=== PATIENT | male | born 1935 | race Caucasian/White ===

== ENCOUNTER 2020-02-23 11:52 | Outpatient (CLI) | payer MEDICARE, BC ==
--- NOTE | 2020-02-23 13:49 | PET ---
EXAM: PET/CT HISTORY: History of large B-cell lymphoma and prostate cancer TECHNIQUE: PET scanning with CT attenuation correction was performed from the vertex of the skull to the proxima l thighs following the intravenous administration of 10.1 millicuries [id number]. COMPARISON: CT of the chest, abdomen and pelvis dated July 13, [address] of the neck dated 07/01 FINDINGS: Biodistribution:The biodistribution for the exam appears acceptable. Head and neck: There is appropriate background activity within the brain. There is a 5.8 mm right lev el IIa lymph node that demonstrates mild hypermetabolic activity with peak activity of 3.01 and a mean activity of 2.79. No additional hypermetabolic lymphadenopathy or mass is identified. Thorax: No hypermetabolic mediastinal, hilar or axillary lymphadenopathy is evident. There are calcif ied lymph nodes within the left hilar region. No hypermetabolic pleural effusion is evident. No suspicious pulmonary nodules are identified. Abdomen and pelvis: There is expected background activity within the GI and systems.There is a mil dly hypermetabolic 1.5 cm right inguinal lymph node with a peak SUV activity of 2.79 and a mean activity 2.47. There is additionally intervally enlarged 7 mm node in the right inguinal region that demonstrates no hypermetabolic uptake. There are surgical clips within both inguinal regions. There is a stable infrarenal abdominal aortic aneurysm measuring 3.7 cm. There is prominent right renal cys t. There is a fat-containing umbilicus hernia. Osseous structures and skin: No hypermetabolic skin or osseous lesion is identified. IMPRESSION: Abnormal PET/CT 1. Nonpathologically enlarged but hypermetabolic right level IIa lymph node is suspicious for lymphom atous involvement. Certainly a mildly reactive lymph node could have a similar appearance. Continued clinical and imaging follow-up is recommended. 2. Enlarged (1.5 cm) and mildly hypermetabolic right inguinal lymph node is suspicious for lymphomato us involvement. An additional intervally enlarged 7 mm non hypermetabolic lymph node is seen adjacent to this larger 1.5 cm lymph node. 3. No hypermetabolic lymphadenopathy seen within the thorax or abdomen. 4. Stable infrarenal abdominal aortic aneurysm measuring 3.7 cm. Stable right renal cyst and a fat-co ntaining umbilical hernia.
== END 2020-02-23 11:53 | disposition home or self-care (01) ==
LOC: PET 11:52
PROVIDERS: ATTEND Internal Medicine Hematology & Oncology
DX: C83.38 Diffuse large B-cell lymphoma, lymph nodes of multiple sites (principal); I71.4 Abdominal aortic aneurysm, without rupture; N28.1 Cyst of kidney, acquired; K42.9 Umbilical hernia without obstruction or gangrene; R59.0 Localized enlarged lymph nodes
CPT/HCPCS: 78815; A9552

== ENCOUNTER 2020-04-01 08:21 | Day surgery (SDC) | payer MEDICARE, BC ==
[2020-03-30 13:57] VITALS: BMI 26.4
[2020-04-01] MEDS ORDERED: PROPOFOL 200 MG/20 ML VIAL ONE (09:10)
[2020-04-01] MEDS ORDERED: Protamine Sulfate 50 MG/5 ML VIAL ONE (10:57)
[2020-04-01] MEDS ORDERED: Heparin 5,000 UNITS/ML VIAL ONE (10:57)
[2020-04-01] MEDS ORDERED: Midazolam HCl 2 mg/2 ml Vial ONE (10:58)
[2020-04-01] MEDS ORDERED: Fentanyl 100 MCG/2 ML VIAL ONE (10:58)
--- NOTE | 2020-04-01 18:33 | OP ---
DATE OF PROCEDURE: 04/01/2020 PREOPERATIVE DIAGNOSIS: Lymphoma. PROCEDURE PERFORMED: Right internal jugular vein MediPort. ANESTHESIA: Sedation with local. DESCRIPTION OF PROCEDURE: After prepping and draping, 1% lidocaine was used to infiltrate an area in the anterior right pectoral area as well as between the heads of the sternocleidomastoid muscle. Ultrasound-guided puncture of the jugular vein was carried out, following which a wire was placed. Chest port site incision was then opened and a pocket created. Tunneler was then used to connect the two incisions. The catheter brought through the tunnel. Peel-away dilator sheath advanced into the neck under fluoroscopic control and then the catheter placed through the peel-away sheath, which was removed. Adjustments were made for length, following which it was connected to the port, placed in the pocket, flushed, and the pockets were closed. The patient tolerated the procedure. Job ID: [id number]
--- NOTE | 2020-04-05 14:11 | EKG ---
Test Reason : PREOP Blood Pressure : / mmHG Vent. Rate : 069 BPM Atrial Rate : 069 BPM P-R Int : 224 ms QRS Dur : 122 ms QT Int : 440 ms P-R-T Axes : 038 -70 040 degrees QTc Int : 471 ms Sinus rhythm with 1st degree A-V block with Premature atrial complexes Left axis deviation Non-specific intra-ventricular conduction delay Abnormal ECG Confirmed by COLUMBA PEREIRA ([id number]) on 04/05/2020 2:11:25 PM Referred By: URMILA Confirmed By:COLUMBA PEREIRA
== END 2020-04-01 14:10 | disposition home or self-care (01) ==
LOC: SDC 08:21
PROVIDERS: ATTEND Thoracic Surgery (Cardiothoracic Vascular Surgery)
PROC: 02HV33Z Insertion of Infusion Device into Superior Vena Cava, Percutaneous Approach (ICD-10-PCS; principal; 2020-04-01)
DX: C83.30 Diffuse large B-cell lymphoma, unspecified site (principal); I10 Essential (primary) hypertension; E78.5 Hyperlipidemia, unspecified; Z79.02 Long term (current) use of antithrombotics/antiplatelets; Z79.82 Long term (current) use of aspirin; Z79.899 Other long term (current) drug therapy
CPT/HCPCS: 36561; 93005; C1788 ×2; 93010; J0690; J1642; J1644; J2250; J2704; J2720; J3010

== ENCOUNTER → 2020-05-10 | Day surgery (SDC) | payer MEDICARE, BC ==
[~2020-05-10] MED LIST: Iopamidol 300 61% 50 ML VIAL FS ONE
--- NOTE | 2020-05-10 09:27 | SPC ---
FLUOROSCOPICALLY GUIDED INJECTION FOR VENOGRAPHY AND MEDIPORT CHECK: HISTORY: Difficulty using Mediport. EXPOSURE: 0.3 minutes, 13,150 uGy/m2. FINDINGS: Patient presented with a Cassidy needle already in the Mediport. Mediport was opacified with contrast. Contrast flows freely from the tip of the Mediport into the right atrium. No evidence of fibrin sheath. After the procedure, Mediport was flushed with heparinized saline. IMPRESSION: Patent right-sided Mediport catheter. Transcribed Date/Time: 05/10/2020 9:44 AM
== END ==
LOC: SPEC 07:26
PROVIDERS: ATTEND Internal Medicine Hematology & Oncology
DX: Z45.2 Encounter for adjustment and management of vascular access device (principal)
CPT/HCPCS: 36005; J1642; Q9967

== ENCOUNTER 2020-06-03 10:18 | Outpatient (CLI) | payer MEDICARE, BC ==
--- NOTE | 2020-06-03 12:33 | PET ---
Nuclear medicine FDG PET/CT: (Positron emission tomography and computed tomography) DATE: 06/03/2020 HISTORY: 85-year-old male with diffuse large B-cell lymphoma, lymph nodes of multiple sites. Evaluate response to treatment. COMPARISON: 02/23/2020 TECHNIQUE: IV injection of F-18 fluorodeoxyglucose (FDG) dose: 11.5 mCi. PET scan and attenuation correction CT performed from skull base to proximal thighs. PET scan and attenuation correction CT thinner slices performed through head and neck. FINDINGS: SUV (standard uptake values) numbers given are maximum SUVs. QCLR used. Previously mentioned approximately 0.6 cm right level 2A lymph node with SUV of approximately 3.2 is currently approximately 0.4 cm, with SUV of 2.6, just above the threshold. The rest of the neck is negative. No suspicious hypermetabolic activity in the chest or abdominal cavity. The previously mentioned 1.2 x 1.7 cm right inguinal lymph node with prior SUV of 3.7 is currently 1. 1 x 0.7 cm with current SUV of 1.0, no longer hypermetabolic. Superior to that, there was a 0.7 x 0.7 cm right inguinal lymph node with previous SUV of 1.7. Curren t size is 0.4 cm, with SUV of 1.0, no longer hypermetabolic. Right paramedian fat-containing ventral hernia. Large right renal cyst. 3.7 cm infrarenal abdominal aortic aneurysm. IMPRESSION: 1) significant interval response to treatment. 2) the right level 2A lymph node is now smaller with SUV of 2.6, just above the threshold. 3) the previously mentioned 2 right inguinal lymph nodes have become smaller, and are currently no lo nger hypermetabolic.
== END 2020-06-03 10:19 | disposition home or self-care (01) ==
LOC: PET 10:18
PROVIDERS: ATTEND Internal Medicine Hematology & Oncology
DX: C83.38 Diffuse large B-cell lymphoma, lymph nodes of multiple sites (principal)
CPT/HCPCS: 78815; A9552

== ENCOUNTER 2020-09-27 09:34 | Outpatient (CLI) | payer MEDICARE, BC | END 2020-09-27 09:35 | disposition home or self-care (01) | LOC: PET 09:34 | PROVIDERS: ATTEND Internal Medicine Hematology & Oncology | DX: C83.38 Diffuse large B-cell lymphoma, lymph nodes of multiple sites (principal) | CPT/HCPCS: 78815; A9552 ==

== ENCOUNTER 2021-01-31 09:22 | Outpatient (CLI) | payer MEDICARE, BC | END 2021-01-31 09:23 | disposition home or self-care (01) | LOC: PET 09:22 | PROVIDERS: ATTEND Internal Medicine Hematology & Oncology | DX: C83.30 Diffuse large B-cell lymphoma, unspecified site (principal) | CPT/HCPCS: 78815; A9552 ==

== ENCOUNTER 2021-06-08 09:39 | Outpatient (CLI) | payer MEDICARE, BC | END 2021-06-08 09:40 | disposition home or self-care (01) | LOC: PET 09:39 | PROVIDERS: ATTEND Internal Medicine Hematology & Oncology | DX: C83.38 Diffuse large B-cell lymphoma, lymph nodes of multiple sites (principal) | CPT/HCPCS: 78815; A9552 ==

== ENCOUNTER 2022-01-22 12:30 | Outpatient (CLI) | payer MEDICARE, BC | END 2022-01-22 12:31 | disposition home or self-care (01) | LOC: PET 12:30 | PROVIDERS: ATTEND Internal Medicine Hematology & Oncology | DX: Z51.11 Encounter for antineoplastic chemotherapy (principal); C83.38 Diffuse large B-cell lymphoma, lymph nodes of multiple sites | CPT/HCPCS: 78815; A9552 ==